=== PATIENT | female | born 2000 | race Caucasian/White ===

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

== ENCOUNTER 2021-03-10 12:56 | Emergency (ER) | payer SELFPAY ==
[2021-03-10] MEDS ORDERED: Take Home: Orphenadrine 100 MG Tab.ER, 4 Tab Pack PO ONE (13:29)
[2021-03-10] MEDS ORDERED: Take Home: Acetaminophen/HYDROcodone 325-5 MG, 5 Tab Pack PO ONE (13:29)
--- NOTE | 2021-03-10 13:36 | EDM.PDOC ---
ED HPI GENERAL MEDICAL PROBLEM - General Stated Complaint: LOW BACK PAIN Time Seen by Provider: 03/10/21 13:15 Source of Information: Reports: Patient History Limitations: Reports: No Limitations - History of Present Illness INITIAL COMMENTS - FREE TEXT/NARRATIVE: Patient complains of mid and low back pain for the last several days after spending the day on the riding mower. Denies any other specific injury. No loss of bowel or bladder, no perineal numbness and no fevers. She has not tried anything for it. Standing makes it worse. She does have a small child at home that she has to lift frequently. NO previous back problems. 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 Now has been only smoking it along with marijuana. rare alcohol use. Been a few days since last using drugs. Has a local provider, can follow up . Some radiation to the bilateral buttocks, no alteration of gait. Onset Date: 03/08/21 Duration: Constant, Getting Worse Location: Reports: Back Quality: Reports: Ache, Dull Severity: Moderate Improves with: Reports: Rest Worsens with: Reports: Other (standing), Movement - Related Data Allergies Allergy/AdvReac Type Severity Reaction Status Date / Time amoxicillin Allergy Rash Verified 03/10/21 13:27 Home Meds: Home Meds . 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: Psychiatric History: Reports: Anxiety, Depression, Other (See Below) Other Psychiatric History: problems sleeping Dermatologic History: Reports: Other (See Below) Other Dermatologic History: Acne - Infectious Disease History Infectious Disease History: Reports: Hepatitis C - Past Surgical History HEENT Surgical History: Reports: Adenoidectomy, Tonsillectomy, Other (See Below) (wisdom teeth) Female Surgical History: Reports: Other (See Below) () Social & Family History - Family History Family Medical History: No Pertinent Family History - Tobacco Use Tobacco Use Status *Q: Current Every Day Tobacco User Tobacco Use Within Last Twelve Months: Cigarettes Smoking Cessation Information Provided To Patient: No - Caffeine Use Caffeine Use: Reports: None - Alcohol Use Alcohol Use History: Yes Alcohol Use in Last Twelve Months: Yes Alcohol Use Frequency: Rarely - Recreational Drug Use Recreational Drug Use: Yes Drug Use in Last 12 Months: Yes Recreational Drug Type: Reports: Marijuana/Hashish, Methamphetamine Recreational Drug Use Frequency: Daily Recreational Drug Last Use: 2-3 days ago Recreational Drug Route: Reports: Inhaled, Other (See Below) (past use of IVDU) ED ROS GENERAL - Review of Systems Review Of Systems: See Below Constitutional: Reports: No Symptoms. Denies: Fever, Chills, Malaise, Weakness HEENT: Reports: No Symptoms Respiratory: Reports: No Symptoms. Denies: Shortness of Breath Cardiovascular: Reports: No Symptoms. Denies: Chest Pain Endocrine: Reports: No Symptoms GI/Abdominal: Reports: No Symptoms : Reports: No Symptoms. Denies: Discharge Musculoskeletal: Reports: Back Pain Skin: Reports: No Symptoms Neurological: Reports: No Symptoms Psychiatric: Reports: No Symptoms ED EXAM,LOWER BACK PAIN/INJURY - Physical Exam Exam: See Below Exam Limited By: No Limitations General Appearance: Alert, No Apparent Distress Eye Exam: Bilateral Eye: EOMI, Normal Inspection, PERRL Ears: Normal External Exam, Hearing Grossly Normal Nose: Normal Inspection, Normal Mucosa Throat/Mouth: Normal Inspection, Normal Oropharynx, Normal Voice, No Airway Compromise Head: Atraumatic, Normocephalic Neck: Normal Inspection Respiratory/Chest: No Respiratory Distress, Lungs Clear, Normal Breath Sounds, No Accessory Muscle Use Cardiovascular: Regular Rate, Rhythm, No Edema, No Murmur GI/Abdominal: Normal Bowel Sounds (Female) Exam: Deferred Back Exam: Muscle Spasm, Paraspinal Tenderness, Other (no vertebral oprocess tenderness, no lesions or rashes, normal flexion at the waist. minimal pain to palpation of the si bilaterally. Minimal sciatic tenderness bilateral buttocks) Extremities: Normal Inspection, Normal Range of Motion, Non-Tender, No Pedal Edema, Other (normal strength in the lower extremities to knee flexion, extension, hip flexion, foot mariah and plantar flexion. gait normal able to walk of tiptoes) Neurological: Alert, Normal Mood/Affect, Normal Dorsiflexion, Normal Plantar Flexion, Normal Gait, Oriented x 3 (minimal decreased sensation to light touch to the left lateral lower leg. rest light touch intact and normal) Course - Re-Assessments/Exams Free Text/Narrative Re-Assessment/Exam: 03/10/21 13:47 discussed with patient muscle spasm from the mower. Briefly discussed the p ossibility of disc problems and need for follow up if not improving. Will send with muscle relaxers and hydrocodone, since it is Friday will send two bottles of the hydrocodone with concern for her tolerance due to her drug abuse. Has taken before. Will follow up. NO concerning red flag signs with her back pain. Departure - Departure Time of Disposition: 13:33 Disposition: Home, Self-Care 01 Condition: Good Clinical Impression: Back pain - Discharge Information *PRESCRIPTION DRUG MONITORING PROGRAM REVIEWED*: No *COPY OF PRESCRIPTION DRUG MONITORING REPORT IN PATIENT JUANITA: No Instructions: Acute Back Pain, Adult, Muscle Strain, [id number], Pain Medicine Instructions, [id number] Additional Instructions: Take one tablet hydrocodone 5/325 every 4 hours as needed for severe pain not managed by motrin 600 mg every 6 hours. Take the muscle relaxer every 12 hours as needed for muscle spasm. These medications cause constipation and sedation. Follow up with your primary care in 2 days if not improved. Use heat or ice, whichever helps the pain. Movement and stretching will help the pain. Limit lifting and make sure you are lifting with your legs instead of your back.
[2021-03-10] MEDS ORDERED: Take Home: Orphenadrine 100 MG Tab.ER, 4 Tab Pack ONE (13:48)
== END 2021-03-10 13:45 | disposition home or self-care (01) ==
LOC: VM.ED 12:56
DX: M54.5 Low back pain (principal); Z72.0 Tobacco use; Z88.0 Allergy status to penicillin
CPT/HCPCS: 99283; A9270-GY

== ENCOUNTER 2022-03-24 19:46 | Emergency (ER) | payer MEDICAID | END 2022-03-24 21:14 | disposition home or self-care (01) | LOC: VM.ED 19:46 | DX: E86.0 Dehydration (principal); F41.9 Anxiety disorder, unspecified; F32.A Depression, unspecified; Z88.0 Allergy status to penicillin; Z79.899 Other long term (current) drug therapy | CPT/HCPCS: 81001; 99283; 99284 ==

== ENCOUNTER 2024-08-13 03:00 | Emergency (ER) | payer SELFPAY ==
[2024-08-13 03:30] LABS: BASOPHILS ABSOLUTE AUTO 0.1 x10^3/uL (0.0-0.2); BASOPHILS PERCENT AUTO 0.5 % (0.2-1.2); EOSINOPHILS ABSOLUTE AUTO 0.2 x10^3/uL (0.0-0.5); EOSINOPHILS PERCENT AUTO 1.6 % (0.0-4.0); HEMATOCRIT 39.9 % (33.0-47.0); HEMOGLOBIN 13.8 g/dL (12.0-16.0); IMMATURE GRAN ABSOLUTE AUTO 0.02 x10^3/uL (0.00-0.07); LYMPHOCYTES ABSOLUTE AUTO 2.3 x10^3/uL (1.0-4.8); LYMPHOCYTES PERCENT AUTO 17.9 % (25.0-50.0); MEAN CORPUSCULAR HEMOGLOBIN 30.5 pg (26.0-32.0); MEAN CORPUSCULAR HGB CONC 34.6 g/dL (32.0-36.0); MEAN CORPUSCULAR VOLUME 88.3 fL (78.0-93.0); MONOCYTES PERCENT AUTO 7.3 % (2.0-11.0); NEUTROPHILS ABSOLUTE AUTO 9.4 x10^3/uL (1.8-7.7); NEUTROPHILS PERCENT AUTO 72.5 % (50.0-80.0); PLATELET COUNT,PLT 260 x10^3/uL (130-400); RED BLOOD CELL COUNT 4.52 x10^6/uL (4.00-5.50)
[2024-08-13 03:32] LABS: APPEARANCE,URINE SLIGHTLY CLOUDY (CLEAR); BILIRUBIN,URINE SMALL (NEGATIVE); COLOR,URINE DARK YELLOW (YELLOW); GLUCOSE,URINE NEGATIVE (NEGATIVE); KETONES,URINE 15 mg/dL (NEGATIVE); LEUKOCYTE ESTERASE,URINE NEGATIVE (NEGATIVE); NITRITE,URINE NEGATIVE (NEGATIVE); OCCULT BLOOD,URINE NEGATIVE (NEGATIVE); PH,URINE 5.5 (5.0-8.0); PROTEIN,URINE TRACE mg/dL (NEGATIVE); UROBILINOGEN,URINE 0.2 EU/dL (0.2)
[2024-08-13 03:36] LABS: BACTERIA,URINE OCCASIONAL /HPF (NOT SEEN); MUCUS,URINE MANY /LPF (NOT SEEN); RBC,URINE 0-5 /HPF (NOT SEEN); SQUAMOUS EPITHELIAL CELLS,UR FEW /HPF (NOT SEEN); WBC,URINE 0-5 /HPF (NOT SEEN)
[2024-08-13 03:43] LABS: BLOOD UREA NITROGEN,BUN 10 mg/dL (7-18); CALCIUM 8.7 mg/dL (8.5-10.1); CARBON DIOXIDE,CO2 24 mmol/L (21-32); CHLORIDE,CL 102 mmol/L (98-107); CREATININE 0.7 mg/dL (0.55-1.02); GLUCOSE RANDOM 94 mg/dL (70-99); POTASSIUM,K 3.5 mmol/L (3.5-5.1); SODIUM,NA 137 mmol/L (136-145)
[2024-08-13 03:44] LABS: ANION GAP 14.5 mmol/L (5-15); ESTIMATED GFR 124 mL/min (>=60)
== END 2024-08-13 04:00 | disposition home or self-care (01) ==
LOC: VM.ED 03:00
DX: O99.891 Other specified diseases and conditions complicating pregnancy (principal); R11.0 Nausea; Z34.90 Encounter for supervision of normal pregnancy, unspecified, unspecified trimester; F17.210 Nicotine dependence, cigarettes, uncomplicated; Z88.0 Allergy status to penicillin; Z79.899 Other long term (current) drug therapy; Z3A.00 Weeks of gestation of pregnancy not specified
CPT/HCPCS: 36415; 80048; 81001; 85025; 99283; 99284